=== PATIENT | male | born 2000 | race Native Hawaiian/Other Pacific Islander ===

== ENCOUNTER 2023-11-26 16:21 | Outpatient (CLI) | payer OTHER ==
--- NOTE | 2023-11-27 10:37 | MRI Report ---
PROCEDURE: Shoulder RT WO INDICATIONS: SUBLUXATION R SHOULDER TECHNIQUE: Noncontrast oblique coronal T2 fast spin echo with fat saturation, oblique sagittal T1 spin echo and T2 fast spin echo with fat saturation, axial T1 spin echo and T2 fast spin echo with fat saturation t hrough the shoulder. COMPARISON: None. FINDINGS: Image quality: Excellent. Rotator cuff: Bursal surface partial-thickness tear involving distal supraspinatus at its insertion o n humeral head is seen. Distal infraspinatus and subscapularis tendinosis is noted. No full-thickness rotator cuff tendon rupture. No rotator cuff muscle atrophy on sagittal images. Bones and bursae: Postsurgical changes are noted in anterior labrum from prior labral repair. There i s chronic appearing Hill-Sachs deformity. No acute fracture or dislocation. No acromioclavicular join t degeneration. The acromion demonstrates conventional anatomy, without an os acromiale. Trace amoun t of subacromial subdeltoid bursal fluid is present. Capsule and soft tissues: In the absence of intra-articular contrast, the labrum and glenohumeral li gaments appear intact. The long head of the biceps tendon demonstrates normal location and morpholog y. The rotator interval appears normal, without fibrosis. The coracohumeral ligament is normal in t hickness. IMPRESSION: 1. Chronic appearing Hill-Sachs deformity involving posterior lateral humeral head suggestive of prio r history of shoulder dislocation. No Bankart fracture is seen. No acute fracture or dislocation. Sma ll amount of subacromial subdeltoid bursal fluid. No loose bodies. 2. Postsurgical changes in anterior glenoid suggestive of prior anterior inferior labral repair. No d efinite recurrent labral tear is seen. 3. Low-grade bursal surface partial-thickness tear involving distal supraspinatus at its insertion. D istal infraspinatus and subscapularis tendinosis. No full-thickness rotator cuff tendon rupture. Reviewed by: Alfredo Maya MD on 11/27/2023 10:36 AM PDT Approved by: Alfredo Maya MD on 11/27/2023 10:36 AM PDT Station ID: [id number]
== END 2023-11-26 16:22 | disposition home or self-care (01) ==
LOC: DI 16:21
DX: S43.001A Unspecified subluxation of right shoulder joint, initial encounter (principal); M75.111 Incomplete rotator cuff tear or rupture of right shoulder, not specified as traumatic; R93.6 Abnormal findings on diagnostic imaging of limbs